=== PATIENT | female | born 1990 | race Caucasian/White ===

== ENCOUNTER 2017-09-15 15:06 | Emergency (ER) | payer BC, OTHER ==
[~2017-09-15] VITALS: Ht 160 cm; Wt 84.3 kg
[~2017-09-15 15:06] MED LIST: BIRTH CONTROL
[2017-09-15 15:08] VITALS: BP 125/77
[2017-09-15 15:57] LABS: HEMATOCRIT 41.4 % (34.6-47.8); HEMOGLOBIN 14.1 g/dL (11.7-16.4); WHITE BLOOD COUNT 7.2 x10^3/uL (3.4-10)
[2017-09-15 16:09] LABS: BLOOD UREA NITROGEN 8 mg/dL (7-18)
[2017-09-15 16:14] LABS: ASPARTATE AMINO TRANSFERASE 12 U/L (15-37)
== END 2017-09-15 18:24 | disposition home or self-care (01) ==
LOC: ED 17:57
DX: N30.00 Acute cystitis without hematuria (principal); E28.2 Polycystic ovarian syndrome
CPT/HCPCS: 36415; 76830; 80053; 81001; 84702; 85025; 87086; 99284; 99285

== ENCOUNTER 2019-04-24 15:45 | Outpatient (CLI) | payer OTHER ==
[~2019-04-24] VITALS: Ht 162.6 cm; Wt 103.0 kg
[2019-04-24 17:12] LABS: MICROSCOPIC NOT IND
[2019-04-24] MEDS ORDERED: PREN1TAB60 PO (17:21)
== END 2019-04-24 17:37 | disposition home or self-care (01) ==
LOC: LDOP 15:45
PROVIDERS: ATTEND Obstetrics & Gynecology
DX: O62.9 Abnormality of forces of labor, unspecified (principal); Z3A.32 32 weeks gestation of pregnancy
CPT/HCPCS: 59025; 81003; 87081; 87086; 99201; G0463

== ENCOUNTER 2019-05-11 19:33 | Outpatient (CLI) | payer OTHER ==
[~2019-05-11] VITALS: Ht 162.6 cm; Wt 103.0 kg
[~2019-05-11 19:33] MED LIST changes: +PREN1TAB60 PO
[2019-05-11 20:20] VITALS: BP 121/75
[2019-05-11 20:21] LABS: MICROSCOPIC NOT IND
[2019-05-11 20:24] LABS: CULTURE INDICATED? NO
== END 2019-05-11 21:02 | disposition home or self-care (01) ==
LOC: LDOP 19:33
PROVIDERS: ATTEND Obstetrics & Gynecology
DX: O26.893 Other specified pregnancy related conditions, third trimester (principal); R10.9 Unspecified abdominal pain; Z3A.38 38 weeks gestation of pregnancy
CPT/HCPCS: 59025; 81003; 99211; G0463

== ENCOUNTER 2019-05-12 09:08 | Emergency (ER) | payer OTHER ==
[~2019-05-12] VITALS: Ht 162.6 cm; Wt 110.4 kg
--- NOTE | 2019-05-12 09:58 | NUR ---
RECREATION TEACHER: PT TO ROOM FROM [facility]
[2019-05-12] MEDS ORDERED: LIDOCAINE-MPF 1%, 5ML INFIL ONE (10:00)
--- NOTE | 2019-05-12 10:10 | NUR ---
PT TO ED FOR "INFECTED SORE" ON LABIA X2 WEEKS. PT STATES STARTED A LITTLE BUMP BUT HASN'T GONE AWAY. PT CONNECTED TO MONITORS. VSS. EDPA TO BS. PLAN FOR I&D.
[2019-05-12] MEDS ORDERED: LIDOCAINE-MPF 1%, 5ML ONE (10:14)
--- NOTE | 2019-05-12 10:31 | NUR ---
L&D TO BS FOR FHT.
--- NOTE | 2019-05-12 11:04 | NUR ---
tomas Pruett to bs for i&d.
[2019-05-12 11:18] VITALS: BP 141/81
--- NOTE | 2019-05-12 11:18 | NUR ---
I&D COMPLETE. PLAN TO DC.
== END 2019-05-12 11:38 | disposition home or self-care (01) ==
LOC: ED 11:23
DX: O23.593 Infection of other part of genital tract in pregnancy, third trimester (principal); Z3A.39 39 weeks gestation of pregnancy
CPT/HCPCS: 56405; 99284

== ENCOUNTER 2019-05-20 09:11 | Inpatient (IN) | payer OTHER ==
[~2019-05-20] VITALS: Ht 162.6 cm; Wt 109.0 kg
[2019-05-20] MEDS ORDERED: OXYTOCIN 30U/ 0.9% NaCL 500ML 500 ML IV ONE (15:16)
[2019-05-20] MEDS ORDERED: ONDANSETRON 2MG/ML, 2ML IVPush PRN (15:30)
[2019-05-20] MEDS ORDERED: CALCIUM CARBONATE 500 MG TAB.CHEW PO PRN (15:30)
[2019-05-20] MEDS ORDERED: FENTANYL PF 100 MCG/2ML IV PRN (15:30)
[2019-05-20 15:34] VITALS: BP 131/71
[2019-05-20 15:45] LABS: BASOPHILS # (AUTO) 0.02 x10^3/uL (0-0.1); BASOPHILS % (AUTO) 0 % (0-1); EOSINOPHILS # (AUTO) 0.14 x10^3/uL (0-0.4); EOSINOPHILS % (AUTO) 2 % (1-7); LYMPHOCYTES # (AUTO) 1.38 x10^3/uL (1-3.4); LYMPHOCYTES % (AUTO) 15 % (22-44); MD NO; MEAN CORPUSCULAR HEMOGLOBIN 29.1 pg (27.0-34.8); MEAN CORPUSCULAR HGB CONC 33.3 g/dL (32.4-35.8); MEAN CORPUSCULAR VOLUME 87.3 fL (80-100); MONOCYTES # (AUTO) 0.46 x10^3/uL (0.2-0.8); MONOCYTES % (AUTO) 5 % (2-9); NEUTROPHILS # (AUTO) 7.37 x10^3/uL (1.8-6.8); NEUTROPHILS % (AUTO) 79 % (42-75); PLATELET COUNT 181 x10^3/uL (130-400); RED BLOOD COUNT 4.33 x10^6/uL (3.82-5.3)
[2019-05-20 15:57] LABS: ALANINE AMINOTRANSFERASE 12 U/L (12-78); ALBUMIN 2.5 g/dL (3.4-5.0); ANION GAP 8 mmol/L (5-15); CALCIUM 8.8 mg/dL (8.5-10.1); CHLORIDE 108 mmol/L (98-107); CREATININE 0.63 mg/dL (0.55-1.02)
[2019-05-20 16:00] LABS: ALKALINE PHOSPHATASE 157 U/L (45-117); BILIRUBIN,TOTAL 0.3 mg/dL (0.2-1.0)
[2019-05-20 16:46] LABS: MICROSCOPIC NOT IND
[2019-05-20] MEDS: LACTATED RINGERS 1,000 ML IV SCH ×2 (18:20→21:15)
[2019-05-20] MEDS ORDERED: FENTANYL PF 100 MCG/2ML ONE ×2 (18:53→21:04)
[2019-05-20] MEDS: FENTANYL PF 100 MCG/2ML IVPush PRN ×2 (18:55→21:05)
[2019-05-21] MEDS: LACTATED RINGERS 1,000 ML IV SCH ×2 (04:33→11:47)
[2019-05-21] MEDS ORDERED: OXYTOCIN 30U/ 0.9% NaCL 500ML 500 ML IV PRN (05:33)
[2019-05-21] MEDS ORDERED: FENTANYL/BUPIV./NS/PF 250 ML EPIDCONT SCH (05:33)
[2019-05-21] MEDS ORDERED: FENTANYL PF 500 MCG, BUPIVACAINE/PF 0.5%, 30ML 62.5 ML in SODIUM CHLORIDE 0.9% 177.5 ML EPIDCONT SCH (06:00)
[2019-05-21 07:10] VITALS: BP 115/67
[2019-05-21] MEDS ORDERED: OXYTOCIN 30U/ 0.9% NaCL 500ML 500 ML ONE ×2 (07:59→23:47)
[2019-05-21] MEDS ORDERED: BUPIVACAINE 0.25% ONE (12:42)
[2019-05-21] MEDS ORDERED: FENTANYL PF 100 MCG/2ML ONE (12:42)
[2019-05-21] MEDS ORDERED: LIDOCAINE/PF 1.5%-EPI 1:200K, 30ML ONE (12:44)
[2019-05-21] MEDS ORDERED: LACTATED RINGERS 1,000 ML IV SCH (14:53)
[2019-05-21] MEDS ORDERED: LACTATED RINGERS 1,000 ML IVBOLUS PRN (15:00)
[2019-05-21] MEDS ORDERED: EPHEDRINE 50 MG/ML, 1ML IVPush PRN (15:00)
[2019-05-21] MEDS: D5%-LACTATED RINGERS 1,000 ML IV SCH (18:13)
[2019-05-21] MEDS ORDERED: NEWBORN KIT ONE (19:07)
[2019-05-21] MEDS ORDERED: ONDANSETRON 2MG/ML, 2ML ONE (21:14)
[2019-05-22] MEDS ORDERED: ONDANSETRON 2MG/ML, 2ML IV PRN (00:30)
[2019-05-22] MEDS ORDERED: MISOPROSTOL 200 MCG TABLET PR PRN (00:30)
[2019-05-22] MEDS ORDERED: ACETAMINOPHEN 325 MG TABLET PO PRN (00:30)
[2019-05-22] MEDS ORDERED: METHYLERGONOVINE 0.2 MG/ML IM PRN (00:30)
[2019-05-22] MEDS ORDERED: CARBOPROST TROMETHAMINE 250 MCG/ML, 1ML IM PRN (00:30)
[2019-05-22] MEDS ORDERED: HYDROcodone/APAP 5/325 TABLET PO PRN ×2 (00:30)
[2019-05-22 04:00] VITALS: BP 113/78
[2019-05-22] MEDS: OXYTOCIN 30U/ 0.9% NaCL 500ML 500 ML IV SCH ×3 (04:09→20:13)
[2019-05-22] MEDS: D5%-LACTATED RINGERS 1,000 ML IV SCH ×3 (04:09→18:30)
[2019-05-22] MEDS: LACTATED RINGERS 1,000 ML IV SCH ×4 (04:09→23:23)
[2019-05-22 08:15] LABS: MEAN CORPUSCULAR HEMOGLOBIN 28.4 pg (27.0-34.8); MEAN CORPUSCULAR HGB CONC 32.9 g/dL (32.4-35.8); MEAN CORPUSCULAR VOLUME 86.2 fL (80-100); MEAN PLATELET VOLUME 8.9 fL (7.4-10.4); PLATELET COUNT 143 x10^3/uL (130-400); RED BLOOD COUNT 4.05 x10^6/uL (3.82-5.3); RED CELL DISTRIBUTION WIDTH 15.8 % (9.6-15.2)
[2019-05-22] MEDS: DOCUSATE 100 MG CAPSULE PO PRN ×2 (08:32→21:14)
[2019-05-22] MEDS: IBUPROFEN 600 MG TABLET PO PRN ×3 (08:32→21:14)
[2019-05-22] MEDS: PRENATAL VIT/IRON/FA 1 EACH TABLET PO SCH (08:32)
[2019-05-22 08:35] VITALS: BP 101/67
[2019-05-22 09:10] LABS: BASOPHILS # (AUTO) 0.01 x10^3/uL (0-0.1); BASOPHILS % (AUTO) 0 % (0-1); EOSINOPHILS # (AUTO) 0.02 x10^3/uL (0-0.4); EOSINOPHILS % (AUTO) 0 % (1-7); LYMPHOCYTES # (AUTO) 0.86 x10^3/uL (1-3.4); LYMPHOCYTES % (AUTO) 6 % (22-44); MD SCAN; MONOCYTES # (AUTO) 0.76 x10^3/uL (0.2-0.8); MONOCYTES % (AUTO) 5 % (2-9); NEUTROPHILS # (AUTO) 13.97 x10^3/uL (1.8-6.8); NEUTROPHILS % (AUTO) 90 % (42-75)
[2019-05-22 12:15] VITALS: BP 108/77
[2019-05-22] MEDS ORDERED: DIPH,PERTUSS(ACELL),TET VAC/PF NC IM-VACC ONE ×2 (14:49→15:00)
[2019-05-22 16:25] VITALS: BP 113/78
[2019-05-22 19:40] VITALS: BP 113/77
[2019-05-23] MEDS: D5%-LACTATED RINGERS 1,000 ML IV SCH (02:30)
[2019-05-23] MEDS: IBUPROFEN 600 MG TABLET PO PRN (03:47)
[2019-05-23] MEDS: OXYTOCIN 30U/ 0.9% NaCL 500ML 500 ML IV SCH (06:13)
[2019-05-23] MEDS: LACTATED RINGERS 1,000 ML IV SCH (07:23)
[2019-05-23 08:00] VITALS: BP 107/74
[2019-05-23] MEDS: PRENATAL VIT/IRON/FA 1 EACH TABLET PO SCH (09:00)
[2019-05-23] MEDS: DOCUSATE 100 MG CAPSULE PO PRN (09:09)
[2019-05-23] MEDS ORDERED: DOCU-131 PO (09:16)
== END 2019-05-23 14:58 | disposition home or self-care (01) | DRG 807 ==
LOC: LDIP 15:08 → 2NW 05-22 03:05
PROVIDERS: ADMIT Obstetrics & Gynecology Maternal & Fetal Medicine; ATTEND Obstetrics & Gynecology Maternal & Fetal Medicine
PROC: 10907ZC Drainage of Amniotic Fluid, Therapeutic from Products of Conception, Via Natural or Artificial Opening (ICD-10-PCS; principal; 2019-05-21)
PROC: 10E0XZZ Delivery of Products of Conception, External Approach (ICD-10-PCS; 2019-05-21)
PROC: 0KQM0ZZ Repair Perineum Muscle, Open Approach (ICD-10-PCS; 2019-05-21)
PROC: 3E033VJ Introduction of Other Hormone into Peripheral Vein, Percutaneous Approach (ICD-10-PCS; 2019-05-21)
PROC: 3E0R3BZ Introduction of Anesthetic Agent into Spinal Canal, Percutaneous Approach (ICD-10-PCS; 2019-05-21)
PROC: 00HU33Z Insertion of Infusion Device into Spinal Canal, Percutaneous Approach (ICD-10-PCS; 2019-05-21)
PROC: 10H07YZ Insertion of Other Device into Products of Conception, Via Natural or Artificial Opening (ICD-10-PCS; 2019-05-21)
DX: O99.214 Obesity complicating childbirth (principal); Z37.0 Single live birth; O70.1 Second degree perineal laceration during delivery; O26.03 Excessive weight gain in pregnancy, third trimester; E66.9 Obesity, unspecified; Z3A.39 39 weeks gestation of pregnancy; M79.7 Fibromyalgia; E28.2 Polycystic ovarian syndrome; O75.89 Other specified complications of labor and delivery
CPT/HCPCS: 36415; J3490; J7121; S0020; 80053; 81003; 82570; 82962; 84156; 84550; 85025; 86850; 86900; 90715; G0378; J2405; J3010; J2590; J7050; J7120

== ENCOUNTER 2020-12-19 11:05 | Emergency (ER) | payer OTHER ==
[~2020-12-19] VITALS: Ht 162.6 cm; Wt 97.0 kg
[~2020-12-19 11:05] MED LIST changes: +DOCU-131 PO
[2020-12-19] MEDS ORDERED: HYDROmorphone 2 MG/ML, 1ML ONE ×2 (11:41→13:49)
[2020-12-19] MEDS ORDERED: ONDANSETRON 2MG/ML, 2ML ONE ×2 (11:42→14:30)
[2020-12-19] MEDS ORDERED: DIAZEPAM 5 MG/ML, 2ML ONE (11:44)
[2020-12-19] MEDS: HYDROmorphone 2 MG/ML, 1ML IVPush PRN ×2 (12:00→13:52)
[2020-12-19] MEDS ORDERED: DIAZEPAM 5 MG/ML, 2ML IVPush ONE (12:00)
[2020-12-19] MEDS ORDERED: SODIUM CHLORIDE FLUSH 10ML SYR IVF ONE (12:00)
[2020-12-19] MEDS ORDERED: ONDANSETRON 2MG/ML, 2ML IVPush ONE ×2 (12:00→14:30)
[2020-12-19 12:10] LABS: BASOPHILS % (AUTO) 1 % (0-1); EOSINOPHILS % (AUTO) 3 % (1-7); LYMPHOCYTES % (AUTO) 13 % (22-44); MEAN CORPUSCULAR HEMOGLOBIN 28.1 pg (27.0-34.8); MEAN CORPUSCULAR HGB CONC 33.2 g/dL (32.4-35.8); MEAN PLATELET VOLUME 8.3 fL (7.4-10.4); MONOCYTES % (AUTO) 4 % (2-9); NEUTROPHILS % (AUTO) 79 % (42-75); PLATELET COUNT 324 x10^3/uL (130-400); RED BLOOD COUNT 4.96 x10^6/uL (3.82-5.3); RED CELL DISTRIBUTION WIDTH 13.9 % (9.6-15.2)
[2020-12-19 12:11] LABS: MD NO
[2020-12-19 12:15] LABS: ANION GAP 8 mmol/L (5-15); CALCIUM 9.9 mg/dL (8.5-10.1); CHLORIDE 106 mmol/L (98-107)
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
[2020-12-19 12:20] LABS: ALANINE AMINOTRANSFERASE 76 U/L (12-78); ALKALINE PHOSPHATASE 105 U/L (45-117); BILIRUBIN,TOTAL 0.7 mg/dL (0.2-1.0); CREATININE 0.83 mg/dL (0.55-1.02); TOTAL PROTEIN 8.7 g/dL (6.4-8.2)
--- NOTE | 2020-12-19 12:21 | NUR ---
PT PLACED ON 2L O2 POST PAIN MED ADMINISTRATION
--- NOTE | 2020-12-19 12:41 | NUR ---
PT REASSESSED FOR PAIN. PT CURRENTLY RESTING IN BED. REMINDED PT ABOUT URINE SAMPLE.
--- NOTE | 2020-12-19 12:46 | NUR ---
GAVE REPORT TO JAKOB LEON
--- NOTE | 2020-12-19 13:20 | NUR ---
BREAK RN: UA SENT. US IN ROOM. VS STABLE. FAMILY AT BEDSIDE. CALL LIGHT IN PLACE. WILL CONTINUE TO MONITOR WHILE PRIMARY RN IS ON BREAK.
--- NOTE | 2020-12-19 13:47 | NUR ---
RECHECKED PT VITALS, POSITIONED FOR COMFORT, FAMILY AT BEDSIDE.
[2020-12-19 13:51] LABS: MICROSCOPIC INDICATED
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
--- NOTE | 2020-12-19 14:15 | NUR ---
DR. WILSON AT BEDSIDE
[2020-12-19] MEDS ORDERED: KETOROLAC 30 MG/1 ML ONE (14:23)
[2020-12-19] MEDS ORDERED: KETOROLAC 30 MG/1 ML IVPush ONE (14:30)
--- NOTE | 2020-12-19 14:34 | NUR ---
PT MEDICATED FOR CONTINUED PAIN. PT COMPLAINED OF NAUSEA, DISCUSSED WITH CALIXTO CIFUENTES. ORDERS RECIVED. PT MEDICATED
--- NOTE | 2020-12-19 14:53 | NUR ---
REASSESSED PT FOR PAIN AFTER ADMIN OF PAIN MEDS. PT RATES PAIN A 5/10. TOOK PT OFF O2 TO SEE HOW THEY TOLORATE ROOM AIR. ESAU COUCH AT BEDSIDE DISCUSSING PT POC.
[2020-12-19 16:00] VITALS: BP 116/79
== END 2020-12-19 16:04 | disposition home or self-care (01) ==
LOC: ED 12:35
DX: N30.00 Acute cystitis without hematuria (principal); G89.29 Other chronic pain; M54.41 Lumbago with sciatica, right side
CPT/HCPCS: 36415; 80053; 81001; 84703; 85025; 87086; 93971; 96374; 96375; 96376; 99285; J1170; J1885; J2405; J3360

== ENCOUNTER → 2021-01-07 | Outpatient (CLI) | payer OTHER | END | disposition home or self-care (01) | LOC: RAD 15:48 | PROVIDERS: ATTEND Physician Assistant | DX: M51.17 Intervertebral disc disorders with radiculopathy, lumbosacral region (principal); M48.07 Spinal stenosis, lumbosacral region; M62.81 Muscle weakness (generalized); R20.2 Paresthesia of skin | CPT/HCPCS: 72148 ==

== ENCOUNTER 2021-05-10 01:24 | Emergency (ER) | payer OTHER ==
[~2021-05-10] VITALS: Ht 162.6 cm; Wt 108.0 kg
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
--- NOTE | 2021-05-10 02:45 | NUR ---
THIS RN AT BEDSIDE WITH , ERP, FOR EXAMINATION OF PT.
--- NOTE | 2021-05-10 02:52 | NUR ---
CALL PLACED TO [facility] PER PT REQUEST. OFFICER WILL BE SENT TO ED TO SPEAK WITH PT. PT AND ERP AWARE.
[2021-05-10] MEDS ORDERED: CEFTRIAXONE 1,000 MG ONE (02:57)
[2021-05-10] MEDS ORDERED: AZITHROMYCIN 250 MG TABLET ONE (02:57)
[2021-05-10] MEDS ORDERED: DOLUTEGRAVIR 50MG TAB PO ONE (03:00)
[2021-05-10] MEDS ORDERED: AZITHROMYCIN 500 MG TABLET PO ONE (03:00)
[2021-05-10] MEDS ORDERED: CEFTRIAXONE 1,000 MG IM ONE (03:00)
[2021-05-10] MEDS ORDERED: TENOFOVIR 300MG TABLET PO ONE (03:00)
[2021-05-10] MEDS ORDERED: ONDANSETRON ODT 4 MG ONE (04:00)
[2021-05-10] MEDS ORDERED: ONDANSETRON ODT 4 MG PO ONE (04:00)
[2021-05-10] MEDS ORDERED: EMTRICITABINE 200 MG CAPSULE PO ONE (04:00)
[2021-05-10 04:11] LABS: MICROSCOPIC NOT IND
--- NOTE | 2021-05-10 04:12 | NUR ---
[employer] AT BEDSIDE WITH PT.
--- NOTE | 2021-05-10 04:36 | NUR ---
OFFICER TIAN FROM [facility] AT BEDSIDE WITH PT TO COMPLETE REPORT, APPROPIRATE PAPERWORK AND TO TRANSPORT PT TO [facility] WHEN READY. PT DENIES ANY ADDITIONAL NEEDS AT THIS TIME.
[2021-05-10 04:49] VITALS: BP 149/72
--- NOTE | 2021-05-10 05:16 | NUR ---
Patient given discharge instructions and they have confirmed that they understand the instructions. Patient ambulatory with steady gait. NAD, all questions answered appropriately, denies additional needs at this time. No personal belongings left in room after discharge. Pt d/c accompained by [employer] officer Jono, will transport pt to [facility] facility for further tx and examination.
== END 2021-05-10 05:19 | disposition home or self-care (01) ==
LOC: ED 02:00
DX: R10.2 Pelvic and perineal pain (principal); T76.21XA Adult sexual abuse, suspected, initial encounter
CPT/HCPCS: 36415; 81003; 87491; 87591; 87806; 96372; 99284; J0696; Q0162; G0475